=== PATIENT | male | born 1950 | race Caucasian/White ===

== ENCOUNTER 2022-06-24 11:15 | Emergency (ER) | payer MEDICARE, MEDICAID, SELFPAY ==
[2022-06-24] VITALS (7 sets, daily range): BP systolic 96–113; BP diastolic 64–72; PULSE 69–96; RESP 13–27; TEMP 36.8; O2SAT 93–100; BMI 15.7
--- NOTE | 2022-06-24 11:33 | ECG_ITS ---
[facility] Test Date: 2022-06-24 Pat Name: Jordan Alcaraz Jr Department: Room: Gender: Male Program Clinician: : 1950 Requested By: Yan Harrell Order Number: [id number] Ralph MD: Cynthia Healy M.D. Measurements Intervals [place] Rate: 86 P: 93 CA: 131 QRS: 166 QRSD: 109 T: 105 QT: 353 QTc: 424 Interpretive Statements SINUS RHYTHM ARM LEADS REVERSED [INVERTED P AND QRS IN I] No previous ECG available for comparison Electronically Signed On 06-24-2022 19:05:08 MEDICAL ADVISOR by Cynthia Healy M.D. [id number]
--- NOTE | 2022-06-24 12:35 | W.ED.SYNCOPE ---
HPI - Syncope General: Chief Complaint: Syncope Stated Complaint: LOC/ SYNCOPE/ DIAPHORETIC Time Seen by Provider: 06/24/22 12:17 History of Present Illness: Patient comes in after having a syncopal episode today. States he was standing in line to pay his taxes and had been standing for quite some time when he began to feel lightheaded and sweaty. States he woke up with people surrounding him. Denies any chest pain, shortness of breath, vomiting, or diarrhea. States that for the past 2 days he has had a sinus infection and has felt a little dehydrated. Associated symptoms: Deny abdominal pain, chest pain, fever(s), headache(s) or nausea Review of Systems Const: Denies: fever(s) or body aches Eyes: Denies: change in vision or blurry vision ENMT: Denies: throat pain or odynophagia Card: Denies: chest pain or palpitations Resp: Denies: dyspnea or productive cough GI: Denies: abdominal pain, nausea or vomiting : Denies: flank pain or dysuria Musc: Denies: neck pain or back pain Skin/Breast: Denies: rash or pruritus Neuro: Denies: headache(s) or numbness in extremities Psych: Denies: anxiety or change in appetite Endo: Denies: polyuria or excessive sweating PFSH ED PFSH: Medical History (Updated 06/24/22 @ 16:14 by Sumit Vidal MD) Contact dermatitis Social History (Updated 06/16/20 @ 10:42 by Lamberto Valencia LPN) Smoking and tobacco status: never smoked Alcohol intake: never Physical Exam Const: COMMON NORMALS: no acute distress, patient oriented x3, healthy appearing and alert HENMT: COMMON NORMALS: normocephalic and atraumatic HEAD & SCALP: normocephalic and atraumatic OTHER: Dry mucous membranes Eye: COMMON NORMALS: Equal, round and reactive pupils present and EOMs intact bilaterally PUPIL: Yes Equal, round and reactive pupils present Neck/C-Spine: COMMON NORMALS: full ROM and supple Resp: COMMON NORMALS: normal respiratory effort, No retractions and No use of accessory muscles Cardio: COMMON NORMALS: regular rate and regular rhythm RATE: regular rate RHYTHM: regular rhythm GI: COMMON NORMALS: Normal to inspection, nondistended, normoactive bowel sounds present, Soft to palpation and non-tender PALPATION: Yes Soft to palpation Back/Pelvis: COMMON NORMALS: thoracic and lumbar spine normal to inspection and no thoracic nor lumbar tenderness Extremity: COMMON NORMALS: normal to inspection and full ROM Neuro: COMMON NORMALS: patient oriented x3 SENSORIUM/ORIENTATION: Yes alert Psych: COMMON NORMALS: mental status grossly normal and cooperative Skin: COMMON NORMALS: no rashes or lesions noted and no wounds GENERAL SKIN EXAM: no rashes or lesions noted Course Vital Signs: Vital signs: Vital Signs Temperature 98.2 F 06/24/22 11:24 Pulse Rate 87 06/24/22 15:00 Respiratory Rate 13 06/24/22 15:00 Blood Pressure 109/68 06/24/22 15:00 Pulse Oximetry 96 06/24/22 15:00 Oxygen Delivery Me thod 06/24/22 11:24 Oxygen Flow Rate 3 06/24/22 11:24 MDM - Syncope Medical Decision Making Patient comes in after having a syncopal episode today. States he was standing in line to pay his taxes and had been standing for quite some time when he began to feel lightheaded and sweaty. States he woke up with people surrounding him. Denies any chest pain, shortness of breath, vomiting, or diarrhea. States that for the past 2 days he has had a sinus infection and has felt a little dehydrated. On physical exam he has dry mucous membranes. Will check labs, EKG, give IV fluids, and reassess. On reassessment I talked to the pt about the test results. Will d/c home at this time with precautions return for worsening or changing symptoms. Lab Data 06/24/22 11:29 06/24/22 11:29 Laboratory Results WBC 7.6 10^3/uL (4.0-10.0) 06/24/22 11:29 RBC 4.65 10^6/uL (4.1-5.3) 06/24/22 11:29 Hgb 15.2 g/dL (11.7-16.6) 06/24/22 11: Hct 46.4 % (42.0-52.0) 06/24/22 11:29 MCV 99.8 fl (80-94) H 06/24/22 11: MCH 32.7 pg (28.0-34.0) 06/24/22 11:29 MCHC 32.8 g/dL (30.0-36.0) 06/24/22 11:29 RDW 12.8 % (12.1-15.1) 06/24/22 11:29 Plt Count 236 10^3/cmm (130-400) 06/24/22 11:29 MPV 9.7 fL (7.4-10.4) 06/24/22 11:29 Neut % (Auto) 56.1 % 06/24/22 11:29 Lymph % (Auto) 25.8 % 06/24/22 11:29 Webb % (Auto) 16.6 % 06/24/22 11:29 Eos % (Auto) 0.4 % 06/24/22 11:29 Baso % (Auto) 0.7 % 06/24/22 11:29 Neut # (Auto) 4.28 10^3/uL (1.8-7.7) 06/24/22 11:29 Lymph # (Auto) 2.0 10^3/uL (0.8-4.8) 06/24/22 11:29 Webb # (Auto) 1.3 10^3/uL (0.2-0.9) H 06/24/22 11:29 Eos # (Auto) 0.0 10^3/uL (0.0-0.8) 06/24/22 11:29 Baso # (Auto) 0.1 10^3/uL (0.0-0.1) 06/24/22 11:29 Nucleated RBC % (auto) 0 % 06/24/22 11:29 Nucleated RBCs # 0.0 /100WBC 06/24/22 11:29 Sodium 137 mmol/L (136-145) 06/24/22 11:29 Potassium 4.3 mmol/L (3.5-5.1) 06/24/22 11:29 Chloride 99 mmol/L (98-107) 06/24/22 11:29 Carbon Dioxide 25 mmol/L (22-29) 06/24/22 11:29 Anion Gap 17.3 (5-19) 06/24/22 11:29 BUN 22 mg/dL (8-23) 06/24/22 11:29 Creatinine 1.7 mg/dL (0.7-1.2) H 06/24/22 11:29 GFR Calculation Not Reportable 06/24/22 11:29 Glucose 129 mg/dL (65-115) H 06/24/22 11:29 Calculated Osmolality 289 mOsm/kg (285-295) 06/24/22 11:29 Calcium 9.5 mg/dL (8.5-10.5) 06/24/22 11:29 Total Bilirubin 0.3 mg/dL (0.15-1.2) 06/24/22 11:29 AST 68 U/L (0-40) H 06/24/22 11:29 ALT 27 U/L (0-41) 06/24/22 11:29 Alkaline Phosphatase 86 U/L (40-130) 06/24/22 11:29 Troponin T Gen 5 ng/L 17 ng/L (0-15) H 06/24/22 15:06 Total Protein 7.1 g/dL (6.6-8.7) 06/24/22 11:29 Albumin 4.3 g/dL (3.5-5.2) 06/24/22 11:29 Globulin 2.8 g/dL (1.3-4.6) 06/24/22 11:29 Discharge Plan Discharge Patient Disposition: Home Clinical Impression: Vasovagal syncope, Dehydration Condition: Stable Prescriptions: No Action Tylenol PM Extra Strength 25-500 mg Tablet 1 tab PO QPM PRN (Reason: Pain/sleep) Rx Instructions: administer while awake Discharge Orders: Discharge ED (Routine); Ordered 06/24/22 Ordered By: Sumit Vidal Referrals: Judd Jay MD [Primary Care Provider] - Patient Instructions: Syncope Coding Level of Care Code ED Dental Laboratory Assistant for Chg Fwd Exam Comprehensive
[2022-06-24 13:01] LABS: Basophils # 0.1 10^3/uL (0.0-0.1); Basophils % 0.7 %; Eosinophils % 0.4 %; Hematocrit 46.4 % (42.0-52.0); Hemoglobin 15.2 g/dL (11.7-16.6); Lymphocytes % 25.8 %; Mean Corpuscular HGB Conc 32.8 g/dL (30.0-36.0); Mean Corpuscular Hemoglobin 32.7 pg (28.0-34.0); Mean Corpuscular Volume 99.8 fl (80-94); Mean Platelet Volume 9.7 fL (7.4-10.4); Monocytes # 1.3 10^3/uL (0.2-0.9); Monocytes % 16.6 %; Neutrophils # 4.28 10^3/uL (1.8-7.7); Neutrophils % 56.1 %; Nucleated Red Blood Cells % 0 %; Platelet Count 236 10^3/cmm (130-400); Red Blood Count 4.65 10^6/uL (4.1-5.3); Red Cell Distribution Width 12.8 % (12.1-15.1); White Blood Count 7.6 10^3/uL (4.0-10.0)
[2022-06-24 13:13] LABS: Alanine Aminotransferase 27 U/L (0-41); Albumin Level 4.3 g/dL (3.5-5.2); Alkaline Phosphatase 86 U/L (40-130); Aspartate Amino Transferase 68 U/L (0-40); Blood Urea Nitrogen 22 mg/dL (8-23); Calcium 9.5 mg/dL (8.5-10.5); Carbon Dioxide 25 mmol/L (22-29); Chloride 99 mmol/L (98-107); Globulin 2.8 g/dL (1.3-4.6); Glucose 129 mg/dL (65-115); Osmolality Calculated 289 mOsm/kg (285-295); Sodium 137 mmol/L (136-145); Total Bilirubin 0.3 mg/dL (0.15-1.2); Total Protein 7.1 g/dL (6.6-8.7); Troponin T (5th) Once 20 ng/L (0-15)
[2022-06-24] MEDS: sodium chloride 0.9% 1,000 ML 999 ML IV (13:13)
[2022-06-24 13:15] LABS: Anion Gap 17.3 (5-19); Potassium 4.3 mmol/L (3.5-5.1)
[2022-06-24 15:42] LABS: Troponin T (5th) Once 17 ng/L (0-15)
== END 2022-06-24 18:01 | disposition home or self-care (01) ==
PROVIDERS: Emergency Provider Emergency Medicine; PCP Internal Medicine
DX: R55 Syncope and collapse (principal); E86.0 Dehydration
CPT/HCPCS: 80053; 84484; 85025; 93005; 99284; J7030

== ENCOUNTER → 2022-08-12 10:29 | Outpatient (BNVA) | payer MEDICARE, MEDICAID, SELFPAY | PROVIDERS: PCP Internal Medicine; Visit Provider Nurse Practitioner | DX: S69.92XA Unspecified injury of left wrist, hand and finger(s), initial encounter (principal); X58.XXXA Exposure to other specified factors, initial encounter | CPT/HCPCS: 73130 ==